=== PATIENT | female | born 1960 | race Caucasian/White ===

== ENCOUNTER 2024-01-13 09:47 | Outpatient (OUT) | payer BC, SELFPAY ==
--- NOTE | 2024-01-13 10:00 | CA_ITS ---
Patient Name: NEIL DELCID MR#: [id number] : 1960 Exam Date: 01/13/2024 Ordering Doctor: DR MARBIN MANN ECHOCARDIOGRAM REPORT PROCEDURE: CA ECHO DOPPLER COMPLETE INDICATIONS: Chest pain, abnormal ECG, hypertension COMPARISON: None. DESCRIPTION: COMPLETE ECHOCARDIOGRAM Real-time transthoracic echocardiography with 2D, M-mode, spectral and color flow Doppler performed. QUALITY: Technical quality was good. LEFT VENTRICLE: Normal chamber size. Normal left ventricular wall thickness. Sigmoid septum. LV EF: Global left ventricular systolic function is normal; visually estimated ejection fraction is 55 to 60%. No obvious wall motion abnormalities. DIASTOLIC: Diastolic function is indeterminate. ATRIAL SEPTUM: Inadequately seen. LEFT ATRIUM: Normal chamber size. RIGHT ATRIUM: Mild dilatation. RIGHT VENTRICLE: Mildly enlarged. Systolic function appears reduced. TRICUSPID VALVE: Normal mobility and thickness. No stenosis with trivial regurgitation. Mild pulmonary hypertension. RVSP 41mmHg MITRAL VALVE: Normal mobility and thickness. No evidence of mitral valve stenosis. There is no mitral annular calcification. Trivial mitral regurgitation. AORTIC VALVE: Normal trileaflet appearance. No visible sclerosis. Normal leaflet mobility. No evidence of aortic valve stenosis. No aortic regurgitation. AORTIC ROOT: Normal diameter and appearance. PULMONIC VALVE: Normal thickness and mobility. No regurgitation. PERICARDIUM: No evidence of pericardial effusion. IVC: Collapses with inspirations. Normal size. CONCLUSION: 1. Global left ventricular systolic function is normal; visually estimated ejection fraction is 55 to 60% 2. The right ventricle is poorly seen but appears mildly enlarged with reduced systolic function 3. Diastolic function is indeterminate 4. Right atrium is mildly dilated 5. Mildly elevated right ventricular systolic pressure; RVSP 41 mmHg Adult Echocardiography Procedure Report Left Ventricle LVEDD (3.7 - 5.6 cm): 4.25 cm LVESD (2.2 - 4.0 cm): 2.90 cm LVIVS thickness (0.6 - 1.2 cm): 0.92 cm LVPW thickness (0.5 - 1.0 cm): 0.82 cm e': 0.07 m/s E - e': 7.73 LVOT Max Gradient: 3.36 mm[Hg] LVOT Area (cm2): 0.92 m/s Peak Velocity (LVOT): 0.92 m/s Mean Velocity (LVOT): 0.55 m/s LVOT Diameter 2.03 cm Left Ventricular Ejection Fraction: 60.05 % Left Atrium LA Volume Index (2D A2C): 32.44 ml/m2 Left Atrium Systolic Dimension: 3.50 cm Mitral Valve MV E to A Ratio: 0.91 Mitral Valve A-Wave Peak Velocity: 0.60 m/s Mitral Valve E-Wave Peak Velocity: 0.55 m/s Right Ventricle RV Internal Diastolic Dimension: 3.16 cm Aorta AO Root Diam: 3.14 cm Ascending Ao Diam: 3.04 cm Aortic Valve AoV Area (Peak Kush): 2.83 cm2, 2.83 cm2 AoV Area (VTI): 2.03 cm2, 2.03 cm2 Peak Velocity(Antegrade Flow): 1.05 m/s Peak Gradient(Antegrade Flow): 4.39 mm[Hg] Mean Velocity(Antegrade Flow): 0.80 m/s Mean Gradient(Antegrade Flow): 2.84 mm[Hg] Velocity Time Integral: 27.00 cm Tricuspid Valve Peak Velocity (Regurgitant Flow): 2.70 m/s, 3.11 m/s Pulmonic Valve Mean Gradient: 1.61 mm[Hg], 1.93 mm[Hg] Mean Velocity: 0.59 m/s, 0.66 m/s Peak Velocity: 0.86 m/s Peak Gradient: 2.81 mm[Hg], 3.09 mm[Hg] Right Atrium Right Atrium Systolic Pressure: 38.27 ml, 38.27 ml Dictated by: Berny Miles M.D. on 01/14/2024 at 17:14 Approved by: Berny Miles M.D. on 01/14/2024 at 17:17
== END 2024-01-13 09:48 | disposition home or self-care (01) ==
LOC: CARD 09:48
PROVIDERS: PCP Internal Medicine; Visit Provider Physician Assistant
DX: R07.9 Chest pain, unspecified (principal); I10 Essential (primary) hypertension; R94.31 Abnormal electrocardiogram [ECG] [EKG]
CPT/HCPCS: 93306